=== PATIENT | male | born 1995 | race American Indian/Alaskan Native ===

== ENCOUNTER 2017-01-12 02:28 | Emergency (ER) | payer SELFPAY ==
[2017-01-12 04:30] VITALS: BP 111/82
[2017-01-12 04:51] LABS: Basophils % (Auto) 1.5 % (0.0-1.8); Eosinophils % (Auto) 2.3 % (0.0-4.3); Hematocrit 38.9 % (35.5-45.6); Hemoglobin 12.1 gm/dl (11.8-15.2); Mean Corpuscular HGB Conc 31 % (32-34); Mean Corpuscular Volume 73 fl (84-94); Platelet Count 175 K/mm3 (140-440); Red Blood Count 5.34 M/mm3 (3.65-5.03); White Blood Count 8.4 K/mm3 (4.5-11.0)
[2017-01-12 04:54] LABS: Mean Corpuscular Hemoglobin 23 pg (28-32)
[2017-01-12 04:57] LABS: Urine Drugs of Abuse Note Disclamer
[2017-01-12 05:07] LABS: Anion Gap 17 mmol/L; BUN/Creatinine Ratio 8.88; Blood Urea Nitrogen 8 mg/dL (9-20); Carbon Dioxide 26 mmol/L (22-30); Chloride 101.6 mmol/L (98-107); Glucose 89 mg/dL (75-100); Potassium 3.7 mmol/L (3.6-5.0); Sodium 141 mmol/L (137-145)
[2017-01-12 05:18] LABS: Bilirubin,Urine NEG (Negative); Blood,Urine NEG (Negative); Ketones,Urine NEG (Negative); Leukocyte Esterase,Urine NEG (Negative); Mucus,Urine FEW /HPF; Nitrite,Urine NEG (Negative); Protein,Urine <15 mg/dL mg/dL (Negative); Urobilinogen,Urine < 2.0 mg/dL (<2.0); WBC,Urine < 1.0 /HPF (0.0-6.0)
--- NOTE | 2017-01-12 06:31 | Emergency Department Report ---
ED General Adult HPI - General Chief complaint: Medical Clearance Stated complaint: MEDICAL CLEARANCE Time Seen by Provider: 01/12/17 06:28 Source: police Mode of arrival: Ambulatory Limitations: No Limitations - History of Present Illness Initial comments: The officer relates to me that the patient was engaged in some kind of bizarre physical behavior when he was apprehended. There is a question of possible substance abuse. The patient himself is uncooperative with giving a history and is under custody. He will not answer questions. He does understand and can follow some simple commands. He does not appear to be disoriented or extremely agitated. It does seem like he is voluntarily poorly cooperative. It is uncertain as to whether he has a psychiatric history. When I asked him to tell me his name he responded "what's your name"and proceeded not to cooperate even though I had told him my name prior and again. -: unknown Severity scale (0 -10): 0 - Related Data Allergies Allergy/AdvReac Type Severity Reaction Status Date / Time No Known Allergies Allergy Verified 01/12/17 07:44 ED Review of Systems ROS: Stated complaint: MEDICAL CLEARANCE Other details as noted in HPI Comment: Unobtainable due to pts medical conditions ED Past Medical Hx - Past Medical History Previous Medical History?: No - Surgical History Past Surgical History?: No - Social History Smoking Status: Current Every Day Smoker Substance Use Type: Alcohol ED Physical Exam - General Limitations: Altered Mental Status General appearance: alert, in no apparent distress - Head Head exam: Present: atraumatic, normocephalic - Eye Eye exam: Present: normal appearance, PERRL, EOMI. Absent: scleral icterus - ENT ENT exam: Present: normal exam, mucous membranes moist - Neck Neck exam: Present: normal inspection. Absent: tenderness, meningismus - Respiratory Respiratory exam: Present: normal lung sounds bilaterally. Absent: respiratory distress - Cardiovascular Cardiovascular Exam: Present: regular rate, normal rhythm. Absent: systolic murmur, diastolic murmur, rubs, gallop - GI/Abdominal GI/Abdominal exam: Present: soft, normal bowel sounds. Absent: distended, tenderness, guarding, rebound, rigid - Rectal Rectal exam: Present: deferred - Extremities Exam Extremities exam: Present: normal inspection - Back Exam Back exam: Present: normal inspection - Neurological Exam Neurological exam: Present: alert, oriented X3, CN II-XII intact, normal gait. Absent: motor sensory deficit - Psychiatric Psychiatric exam: Present: normal affect, normal mood - Skin Skin exam: Present: warm, dry, intact, normal color. Absent: rash ED Course Vital Signs 01/12/17 01/12/17 04:19 04:28 Temperature 98.1 F Pulse Rate 54 L Respiratory 14 14 Rate Blood Pressure 111/82 [Left] O2 Sat by Pulse 99 Oximetry - Reevaluation(s) Reevaluation #1: The patient was given Geodon in the hope to help ascertain if he was acutely psychotic. This made him a bit sleepy but did not seem to have an antipsychotic affect. He remained reasonably peaceful in law enforcement custody. CT of his head showed nothing acute. He is appropriate for management in the long-term environment. I will recommend psychiatric evaluation. 01/12/17 08:52 ED Medical Decision Making - Lab Data Result diagrams: 01/12/17 04:38 01/12/17 04:38 Laboratory Results - last 24 hr 01/12/17 01/12/17 01/12/17 04:19 04:20 04:38 WBC RBC Hgb Hct MCV MCH MCHC RDW Plt Count Lymph % (Auto) [place] % (Auto) Eos % (Auto) Baso % (Auto) Lymph # [place] # Eos # Baso # Seg Neutrophils % Seg Neutrophils # Sodium 141 Potassium 3.7 Chloride 101.6 Carbon Dioxide 26 Anion Gap 17 BUN 8 L Creatinine 0.9 Estimated GFR > 60 BUN/Creatinine Ratio 8.88 Glucose 89 Calcium 9.0 Urine Color Yellow Urine Turbidity Clear Urine pH 6.0 Ur Specific [place] 1.006 Urine Protein <15 mg/dl Urine Glucose (UA) Neg Urine Ketones Neg Urine Blood Neg Urine Nitrite Neg Urine Bilirubin Neg Urine Urobilinogen < 2.0 Ur Leukocyte Esterase Neg Urine WBC (Auto) < 1.0 Urine RBC (Auto) 3.0 U Epithel Cells (Auto) < 1.0 Urine Mucus Few Urine Opiates Screen Presumptive negative Urine Methadone Screen Presumptive negative Ur Barbiturates Screen Presumptive negative Ur Phencyclidine Scrn Presumptive negative Ur Amphetamines Screen Presumptive negative U Benzodiazepines Scrn Presumptive negative Urine Cocaine Screen Presumptive negative U Marijuana (THC) Screen Presumptive positive Drugs of Abuse Note Disclamer Plasma/Serum Alcohol 01/12/17 01/12/17 04:38 04:38 WBC 8.4 RBC 5.34 H Hgb 12.1 Hct 38.9 MCV 73 L MCH 23 L MCHC 31 L RDW 16.0 H Plt Count 175 Lymph % (Auto) 50.5 H [place] % (Auto) 7.2 Eos % (Auto) 2.3 Baso % (Auto) 1.5 Lymph # 4.3 [place] # 0.6 Eos # 0.2 Baso # 0.1 Seg Neutrophils % 38.5 L Seg Neutrophils # 3.2 Sodium Potassium Chloride Carbon Dioxide Anion Gap BUN Creatinine Estimated GFR BUN/Creatinine Ratio Glucose Calcium Urine Color Urine Turbidity Urine pH Ur Specific [place] Urine Protein Urine Glucose (UA) Urine Ketones Urine Blood Urine Nitrite Urine Bilirubin Urine Urobilinogen Ur Leukocyte Esterase Urine WBC (Auto) Urine RBC (Auto) U Epithel Cells (Auto) Urine Mucus Urine Opiates Screen Urine Methadone Screen Ur Barbiturates Screen Ur Phencyclidine Scrn Ur Amphetamines Screen U Benzodiazepines Scrn Urine Cocaine Screen U Marijuana (THC) Screen Drugs of Abuse Note Plasma/Serum Alcohol < 0.01 - Radiology Data Radiology results: report reviewed interpreted by me: No acute finding Critical care attestation.: If time is entered above; I have spent that time in minutes in the direct care of this critically ill patient, excluding procedure time. ED Disposition Clinical Impression: Substance abuse Altered mental status Qualifiers: Altered mental status type: unspecified Qualified Code(s): R41.82 - Altered mental status, unspecified Disposition: DC-01 TO HOME OR SELFCARE Is pt being admited?: No Does the pt Need Aspirin: No Condition: Stable Instructions: Cannabis Abuse (ED), Brief Psychotic Disorder (ED) Additional Instructions: I would recommend a psychiatric evaluation. No medical contraindications to incarceration were found. Referrals: PRIMARY CARE, [Primary Care Provider] - 3-5 Days Time of Disposition: 08:54
[2017-01-12] MEDS ORDERED: GEODON IM ONE (07:21)
[2017-01-12] MEDS ORDERED: WATER FOR INJ (PF) 10 ML ONE (07:43)
--- NOTE | 2017-01-12 08:17 | Cat Scan Report ---
FINAL REPORT EXAM: CT HEAD/BRAIN WO CON HISTORY: headache TECHNIQUE: CT of the head was performed. No intravenous contrast was administered. PRIORS: None. FINDINGS: There is no evidence of intracranial hemorrhage. There is no edema, mass effect or midline shift. There are no abnormal extra-axial fluid collections. The ventricles are appropriate for brain volume. There is no skull fracture seen. The visualized aspects of the sinuses are clear. IMPRESSION: There is no acute intracranial abnormality identified.
== END 2017-01-12 09:42 | disposition home or self-care (01) ==
LOC: ED 02:28
DX: F19.10 Other psychoactive substance abuse, uncomplicated (principal); R41.82 Altered mental status, unspecified; F17.200 Nicotine dependence, unspecified, uncomplicated
CPT/HCPCS: 36415; 70450; 80048; 80307; 81001; 85025; 96372; 99284; G0480; J3486; 80320

== ENCOUNTER 2017-01-14 12:42 | Emergency (ER) | payer SELFPAY ==
[2017-01-14 13:03] VITALS: BP 144/85
--- NOTE | 2017-01-14 13:03 | Emergency Department Report ---
Chief Complaint: Psych Stated Complaint: MH EVAL Time Seen by Provider: 01/14/17 12:59 - HPI History of Present Illness: PT brought in by family for MHE. PT was cleared in ED two days ago prior to shelter. Pt's family reports that pt is having erratic behavior and hallucinations - ROS Review of Systems: pt not responding to my questions - Exam Physical Exam: pt not verbal during my assessment pt's affect is flat and withdrawn MSE screening note: Focused history and physical exam performed. Due to findings the following was ordered: labs, mhe ED Disposition for MSE Condition: Stable
[2017-01-14 13:35] LABS: Basophils % (Auto) 0.4 % (0.0-1.8); Eosinophils % (Auto) 1.5 % (0.0-4.3); Mean Corpuscular HGB Conc 31 % (32-34); Mean Corpuscular Volume 72 fl (84-94); Platelet Count 183 K/mm3 (140-440); Red Blood Count 5.84 M/mm3 (3.65-5.03); Red Cell Distribution Width 15.8 % (13.2-15.2); White Blood Count 7.6 K/mm3 (4.5-11.0)
[2017-01-14 13:36] LABS: Mean Corpuscular Hemoglobin 22 pg (28-32)
[2017-01-14 13:40] LABS: Hematocrit 42.3 % (35.5-45.6); Hemoglobin 12.7 gm/dl (11.8-15.2)
[2017-01-14 13:48] LABS: Alanine Aminotransferase 18 units/L (7-56); Albumin 4.4 g/dL (3.9-5); Albumin/Globulin Ratio 1.4 %; Alkaline Phosphatase 57 units/L (35-129); Anion Gap 18 mmol/L; BUN/Creatinine Ratio 11.11; Blood Urea Nitrogen 10 mg/dL (9-20); Carbon Dioxide 25 mmol/L (22-30); Chloride 101.9 mmol/L (98-107); Glucose 89 mg/dL (75-100); Potassium 4.2 mmol/L (3.6-5.0); Sodium 141 mmol/L (137-145); Total Protein 7.6 g/dL (6.3-8.2)
--- NOTE | 2017-01-14 22:35 | Emergency Department Report ---
HPI - General Chief Complaint: Psych Time Seen by Provider: 01/14/17 12:59 - HPI HPI: This is a 21-year-old male presents emergency Department, brought in by his uncle, with the complaint of his family having concern for some erratic behavior. They say that at one moment he is fine and the next he is walking around and speaking to people that are not present. The patient was here for the same problem 2 days ago and was cleared to go to retirement. He went to retirement at that time because of allegedly chest passing out a holiness. He says that he went there to pray and fell asleep. The patient denies any suicidal or homicidal ideations, any auditory or visual hallucinations. He says that he is "fine all of the time." He says he does not know what his family is referring to. He denies any past psychiatric history. ED Past Medical Hx - Past Medical History Previous Medical History?: No - Surgical History Past Surgical History?: No - Social History Smoking Status: Current Some Day Smoker Substance Use Type: Marijuana ED Review of Systems ROS: Stated complaint: MH EVAL Other details as noted in HPI Comment: All other systems reviewed and negative Constitutional: denies: chills, fever Eyes: denies: eye pain, eye discharge, vision change ENT: denies: ear pain, throat pain Respiratory: denies: cough, shortness of breath, wheezing Cardiovascular: denies: chest pain, palpitations Gastrointestinal: denies: abdominal pain, nausea, diarrhea Genitourinary: denies: urgency, dysuria Musculoskeletal: denies: back pain, joint swelling, arthralgia Skin: denies: rash, lesions Neurological: denies: headache, weakness, paresthesias Psychiatric: denies: auditory hallucinations, visual hallucinations, homicidal thoughts, suicidal thoughts Physical Exam - Physical Exam Vital Signs: Vital Signs 01/14/17 12:56 Temperature 98.4 F Pulse Rate 78 Respiratory 16 Rate Blood Pressure 144/85 O2 Sat by Pulse 100 Oximetry Physical Exam: GENERAL: The patient is well-developed well-nourished. HEENT: Normocephalic. Atraumatic. Extraocular motions are intact. Patient has moist mucous membranes. Pupils equal reactive to light bilaterally. NECK: Supple. Trachea is midline. CHEST/LUNGS: Clear to auscultation. There is no respiratory distress noted. HEART/CARDIOVASCULAR: Regular. There is no tachycardia. There is no gallop rub or murmur. ABDOMEN: Abdomen is soft, nontender. Patient has normal bowel sounds. There is no abdominal distention. SKIN: There is no rash. There is no edema. There is no diaphoresis. NEURO: The patient is awake, alert, and oriented. The patient is cooperative. The patient has no focal neurologic deficits. The patient has normal speech and gait. Cranial nerves II through XII grossly intact. MUSCULOSKELETAL: There is no tenderness or deformity. There is no limitation range of motion. There is no evidence of acute injury. ED Course Vital Signs 01/14/17 12:56 Temperature 98.4 F Pulse Rate 78 Respiratory 16 Rate Blood Pressure 144/85 O2 Sat by Pulse 100 Oximetry ED Medical Decision Making - Lab Data Result diagrams: 01/14/17 13:10 01/14/17 13:10 - Medical Decision Making 21-year-old presents for a possible psychiatric evaluation. It sounds like the family feels that he has been having some intermittent erratic behavior. He denies any history of any psychiatric illness. While in the emergency department the patient has been awake, calm and appropriate. He denies any suicidal or homicidal ideations, or any visual or auditory hallucinations. Since the patient has not been acting inappropriate, and he does not appear to be a danger to himself or others, and does appear to be able to complete his ADLs at this time, he does not appear to be a candidate to be made a 1013. The patient was given a referral for primary care and the [facility] facility. He's been encouraged to return to the emergency department with any worsening of his symptoms or any acute distress. - Differential Diagnosis substance abuse, schizophrenia, bipolar disorder Critical Care Time: No Critical care attestation.: If time is entered above; I have spent that time in minutes in the direct care of this critically ill patient, excluding procedure time. ED Disposition Clinical Impression: Encounter for psychological evaluation Disposition: DC-01 TO HOME OR SELFCARE Is pt being admited?: No Condition: Stable Additional Instructions: Please follow-up with a primary care physician in the next few days. I've also given a referral for [facility]. Return to the emergency department with any significant depression, thoughts of harming yourself or others, any chest pain or respiratory distress, or any acute distress. Referrals: PRIMARY CARE, [Primary Care Provider] - 3-5 Days [facility] [Outside] - 3-5 Days [facility] [Outside] - 3-5 Days Time of Disposition: 22:34
== END 2017-01-14 23:37 | disposition home or self-care (01) ==
LOC: ED 12:42
DX: Z00.8 Encounter for other general examination (principal); F12.90 Cannabis use, unspecified, uncomplicated; Z72.0 Tobacco use
CPT/HCPCS: 36415; 80053; 85025; 99284; G0480; 80320

== ENCOUNTER 2021-04-09 09:37 | Emergency (ER) | payer SELFPAY ==
[2021-04-09 09:46] VITALS: BP 120/84
[2021-04-09] MEDS ORDERED: SODIUM CHLORIDE 0.9% 1000 ML 1,000 ML IV ONE (10:08)
[2021-04-09] MEDS ORDERED: DICYCLOMINE 20 MG TAB PO ONE (10:08)
[2021-04-09] MEDS ORDERED: ONDANSETRON 4 MG/2 ML INJ IV ONE (10:08)
[2021-04-09] MEDS ORDERED: FAMOTIDINE 20 MG/2 ML INJ IV ONE (10:08)
[2021-04-09] MEDS ORDERED: MORPHINE 4 MG/1 ML INJ IV ONE (10:08)
[2021-04-09 10:37] LABS: Bilirubin,Urine NEG (Negative); Blood,Urine NEG (Negative); Color,Urine Yellow (Yellow); Mucus,Urine FEW /HPF; Urobilinogen,Urine < 2.0 mg/dL (<2.0)
[2021-04-09 10:47] LABS: Basophils # (Auto) 0.2 K/mm3 (0.0-0.1); Basophils % (Auto) 1.9 % (0.0-1.8); Eosinophils # (Auto) 0.2 K/mm3 (0.0-0.4); Eosinophils % (Auto) 2.6 % (0.0-4.3); Hematocrit 43.9 % (35.5-45.6); Hemoglobin 13.9 gm/dl (11.8-15.2); Lymphocytes # (Auto) 2.7 K/mm3 (1.2-5.4); Lymphocytes % (Auto) 33.5 % (13.4-35.0); Mean Corpuscular HGB Conc 32 % (32-34); Mean Corpuscular Volume 72 fl (84-94); Monocytes # (Auto) 0.6 K/mm3 (0.0-0.8); Monocytes % (Auto) 7.6 % (0.0-7.3); Platelet Count 187 K/mm3 (140-440); Red Blood Count 6.11 M/mm3 (3.65-5.03); Red Cell Distribution Width 15.3 % (13.2-15.2)
[2021-04-09 11:01] LABS: WBC,Urine < 1.0 /HPF (0.0-6.0)
[2021-04-09 11:11] LABS: Alanine Aminotransferase 8 units/L (7-56); Albumin 4.7 g/dL (3.9-5); BUN/Creatinine Ratio 11; Blood Urea Nitrogen 10 mg/dL (9-20); Calcium 10.1 mg/dL (8.4-10.2); Hemolysis Index 6
--- NOTE | 2021-04-09 12:59 | Emergency Department Report ---
ED Abdominal Pain HPI - General Chief Complaint: Abdominal Pain Stated Complaint: NAUSEA,VOMITING, STOMACH PAIN Time Seen by Provider: 04/09/21 10:01 Source: patient Mode of arrival: Ambulatory Limitations: No Limitations - History of Present Illness Initial Comments: This is a 26-year-old male nontoxic, well nourished in appearance, no acute signs of distress presents to the ED with c/o of nausea and vomiting and abdominal pain several days. Patient describes vomiting as food content and yellow gastric acid. Patient describes abdominal pain as cramping and aching with level of 8/10 diffuse and worse to RLQ. Patient denies chest pain, short of breath, fever, hemoptysis, blood in stool, chills, headache, stiff neck, numbness or tingling. Patient denies any diarrhea or constipation. Denies any blood in stool. Patient denies any recent travels. Patient denies any drug allergies or significant past medical history. MD Complaint: abdominal pain -: days(s) Location: diffuse, RLQ Radiation: none Migration to: no migration Severity: mild Severity scale (0 -10): 8 Quality: cramping, aching Consistency: constant Improves With: nothing Worsens With: nothing Associated Symptoms: nausea, vomiting. denies: diarrhea, fever, chills, constip ation, dysuria, hematemesis, hematochezia, melena, hematuria, anorexia, syncope - Related Data Allergies Allergy/AdvReac Type Severity Reaction Status Date / Time No Known Allergies Allergy Verified 01/12/17 07:44 ED Review of Systems ROS: Stated complaint: NAUSEA,VOMITING, STOMACH PAIN Other details as noted in HPI Comment: All other systems reviewed and negative Constitutional: denies: chills, fever Eyes: denies: eye pain, eye discharge, vision change ENT: denies: ear pain, throat pain Respiratory: denies: cough, shortness of breath, wheezing Cardiovascular: denies: chest pain, palpitations Endocrine: no symptoms reported Gastrointestinal: abdominal pain, nausea, vomiting. denies: diarrhea, constip ation, hematemesis, melena, hematochezia Genitourinary: denies: urgency, dysuria Musculoskeletal: denies: back pain, joint swelling, arthralgia Skin: denies: rash, lesions Neurological: denies: headache, weakness, paresthesias Psychiatric: denies: anxiety, depression Hematological/Lymphatic: denies: easy bleeding, easy bruising ED Past Medical Hx - Past Medical History Previous Medical History?: No - Surgical History Past Surgical History?: No - Social History Smoking Status: Current Some Day Smoker Substance Use Type: Marijuana ED Physical Exam - General Limitations: No Limitations General appearance: alert, in no apparent distress - Head Head exam: Present: atraumatic, normocephalic - Eye Eye exam: Present: normal appearance - Neck Neck exam: Present: normal inspection, full ROM. Absent: tenderness, meningismus, lymphadenopathy - Respiratory Respiratory exam: Present: normal lung sounds bilaterally. Absent: respiratory distress, wheezes, rales, rhonchi, stridor, chest wall tenderness, accessory muscle use, decreased breath sounds, prolonged expiratory - Cardiovascular Cardiovascular Exam: Present: regular rate, normal rhythm, normal heart sounds. Absent: bradycardia, tachycardia, irregular rhythm, systolic murmur, diastolic murmur, rubs, gallop - GI/Abdominal GI/Abdominal exam: Present: soft, tenderness (diffuse with worse to RLQ), normal bowel sounds. Absent: distended, guarding, rebound, rigid, diminished bowel sounds - Extremities Exam Extremities exam: Present: normal inspection, full ROM - Back Exam Back exam: Present: normal inspection, full ROM. Absent: tenderness, CVA tenderness (R), CVA tenderness (L), muscle spasm, paraspinal tenderness, vertebral tenderness, rash noted - Neurological Exam Neurological exam: Present: alert, oriented X3, normal gait - Psychiatric Psychiatric exam: Present: normal affect, normal mood - Skin Skin exam: Present: warm, dry, intact, normal color. Absent: rash ED Course Vital Signs 04/09/21 09:45 Temperature 98.1 F Pulse Rate 74 Respiratory 18 Rate Blood Pressure 120/84 O2 Sat by Pulse 100 Oximetry - Reevaluation(s) Reevaluation #1: 04/09/21 12:59 Patient is speaking in full sentences with no signs of distress noted. ED Medical Decision Making - Lab Data Result diagrams: 04/09/21 10:17 04/09/21 10:17 Lab Results 04/09/21 04/09/21 04/09/21 Range/Units 10:02 10:17 10:17 WBC 7.9 (4.5-11.0) K/mm3 RBC 6.11 H (3.65-5.03) M/mm3 Hgb 13.9 (11.8-15.2) gm/dl Hct 43.9 (35.5-45.6) % MCV 72 L (84-94) fl MCH 23 L (28-32) pg MCHC 32 (32-34) % RDW 15.3 H (13.2-15.2) % Plt Count 187 (140-440) K/mm3 Lymph % (Auto) 33.5 (13.4-35.0) % [place] % (Auto) 7.6 H (0.0-7.3) % Eos % (Auto) 2.6 (0.0-4.3) % Baso % (Auto) 1.9 H (0.0-1.8) % Lymph # (Auto) 2.7 (1.2-5.4) K/mm3 [place] # (Auto) 0.6 (0.0-0.8) K/mm3 Eos # (Auto) 0.2 (0.0-0.4) K/mm3 Baso # (Auto) 0.2 H (0.0-0.1) K/mm3 Seg Neutrophils % 54.4 (40.0-70.0) % Seg Neutrophils # 4.3 (1.8-7.7) K/mm3 Sodium 141 (137-145) mmol/L Potassium 3.9 (3.6-5.0) mmol/L Chloride 104.3 (98-107) mmol/L Carbon Dioxide 28 (22-30) mmol/L Anion Gap 13 mmol/L BUN 10 (9-20) mg/dL Creatinine 0.9 (0.8-1.3) mg/dL Estimated GFR > 60 ml/min BUN/Creatinine Ratio 11 % Glucose 88 (75-100) mg/dL Calcium 10.1 (8.4-10.2) mg/dL Total Bilirubin 0.60 (0.1-1.2) mg/dL AST 14 (5-40) units/L ALT 8 (7-56) units/L Alkaline Phosphatase 78 (35-129) units/L Total Protein 8.3 H (6.3-8.2) g/dL Albumin 4.7 (3.9-5) g/dL Albumin/Globulin Ratio 1.3 % Lipase 18 (13-60) units/L Urine Color Yellow (Yellow) Urine Turbidity Cloudy (Clear) Urine pH 9.0 H (5.0-7.0) Ur Specific [place] 1.014 (1.003-1.030) Urine Protein 30 mg/dl (Negative) mg/dL Urine Glucose (UA) Neg (Negative) mg/dL Urine Ketones Neg (Negative) mg/dL Urine Blood Neg (Negative) Urine Nitrite Neg (Negative) Urine Bilirubin Neg (Negative) Urine Urobilinogen < 2.0 (<2.0) mg/dL Ur Leukocyte Esterase Neg (Negative) Urine WBC (Auto) < 1.0 (0.0-6.0) /HPF Urine RBC (Auto) 3.0 (0.0-6.0) /HPF Urine Mucus Few /HPF - Medical Decision Making 26-year-old male that presents with abdominal pain with nausea. Patient is stable and was examined by me. Labs has been obtained and CT ordered but after initial IV medication given patient stated he feels much better and wants to leave. Patient educated of my concerns and further evaluation/treatment and appropriate disposition of the patient but patient stated he needs to leave. Patient educated that if not properly treated and evaluated severe complications can occur such as disability, worsening condition and or patient still sign AGAINST MEDICAL ADVICE. At time of disch signing AGAINST MEDICAL ADVICE, the patient does not seem toxic or ill in appearance. No acute signs of distress noted. No further questions noted by the patient. Critical care attestation.: If time is entered above; I have spent that time in minutes in the direct care of this critically ill patient, excluding procedure time. ED Disposition Clinical Impression: Nausea Abdominal pain, unspecified site Qualifiers: Abdominal location: right lower quadrant Qualified Code(s): R10.31 - Right lower quadrant pain Disposition: 07 LEFT AGAINST MEDICAL ADVICE Is pt being admited?: No Condition: Undetermined Additional Instructions: Follow-up with a primary care doctor as soon as possible or if symptoms worsen and continue return to emergency room as soon as possible. Your condition may be serious as instructed and educated today in the ER but you decided to leave AGAINST MEDICAL ADVICE. It is highly recommended to see a provider as soon as possible to rule out serious complications that was described to you during your ED stay. Referrals: PRIMARY CARE, [Primary Care Provider] - SARAH OLIVARES MD [Staff Physician] - [place]
== END 2021-04-09 13:03 | disposition left against medical advice (07) ==
LOC: ED 09:37
DX: R10.9 Unspecified abdominal pain (principal); R11.2 Nausea with vomiting, unspecified; F17.200 Nicotine dependence, unspecified, uncomplicated; F12.90 Cannabis use, unspecified, uncomplicated; Z79.899 Other long term (current) drug therapy
CPT/HCPCS: 36415; 80053; 81001; 83690; 85025; 96361; 96374; 96375; 99283; J2270; J2405; J7030